=== PATIENT | male | born 1985 | race Caucasian/White ===

== ENCOUNTER → 2024-04-09 14:38 | Outpatient (CLI) | payer OTHER, SELFPAY ==
[2024-04-09 15:55] LABS: Influenza A - CEPHEID Flu A NEGATIVE (NEGATIVE); Influenza B - CEPHEID Flu B NEGATIVE (NEGATIVE); Respiratory Syncytial Virus Negative (Negative)
[2024-04-09 15:58] LABS: COVID-19 CEPHEID 4-PLEX PCR Negative (Negative)
== END ==
PROVIDERS: Visit Provider Physician Assistant Medical
DX: R05.1 Acute cough (principal)
CPT/HCPCS: 0241U